=== PATIENT | female | born 1935 | race Caucasian/White ===

== ENCOUNTER 2021-04-03 12:11 | Outpatient (CLI) | payer MEDICARE, OTHER ==
[~2021-04-03 12:11] MED LIST: ASPI-605 PO; IRON1TAB96 PO; METF-440 PO; METO50TA16 PO; OLME40TA12 PO; SIMV-49 PO; [UNRECOGNIZED DRUG - CODE] PO
[2021-04-03 13:00] LABS: BASOPHILS % (AUTO) 0.7 % (0.0-2.0); EOSINOPHILS % (AUTO) 1.4 % (0.0-6.0); HEMATOCRIT 36 % (33-45); HEMOGLOBIN 11.7 g/dL (11.5-14.8); LYMPHOCYTES # (AUTO) 1.1 K/uL (0.8-4.8); LYMPHOCYTES % (AUTO) 14.8 % (20.0-44.0); MEAN CORPUSCULAR HGB CONC 33 g/dl (31.0-36.0); MEAN CORPUSCULAR VOLUME 91 fL (82-100); MONOCYTES # (AUTO) 0.6 K/uL (0.1-1.30); NEUTROPHILS # (AUTO) 5.4 K/uL (1.8-8.9); NEUTROPHILS % (AUTO) 75.1 % (43.0-81.0); PLATELET COUNT (AUTO) 290 K/uL (150-450); RED BLOOD CELL COUNT(AUTO) 3.88 MIL/uL (4.0-5.2); WHITE BLOOD COUNT (AUTO) 7.1 K/uL (4.3-11.0)
[2021-04-03 14:12] LABS: ALBUMIN 3.6 g/dL (3.4-5.0); BILIRUBIN,TOTAL 0.4 mg/dL (0.2-1.0); CALCIUM, SERUM 8.6 mg/dL (8.5-10.1); CREATININE 1.1 mg/dL (0.6-1.3); POTASSIUM 4.2 mmol/L (3.5-5.1); TOTAL PROTEIN, SERUM 7.5 g/dL (6.4-8.2)
[2021-04-03 14:23] LABS: THYROID STIMULATING HORMONE 3.334 uIU/mL (0.358-3.74)
== END 2021-04-03 23:59 | disposition home or self-care (01) ==
LOC: LAB 12:11
PROVIDERS: ATTEND Internal Medicine Interventional Cardiology
DX: I10 Essential (primary) hypertension (principal); E11.9 Type 2 diabetes mellitus without complications; E78.5 Hyperlipidemia, unspecified; E03.9 Hypothyroidism, unspecified; R53.83 Other fatigue
CPT/HCPCS: 36415; 80053-TC; 80061-TC; 83540-TC; 83550-TC; 84439-TC; 84443-TC; 85025-TC

== ENCOUNTER 2021-04-20 07:45 | Inpatient (IN) | payer MEDICARE, OTHER ==
[~2021-04-20] VITALS: Ht 147.3 cm; Wt 74.8 kg
--- NOTE | 2021-04-20 07:45 | NUR ---
PT BIBRA 83 FROM HOME C/O WORSENING SOB STARTED YESTERDAY. PT IS AAOX3, NOTED RESPIRATORY DISTRESS, HOOKED TO O2 VIA NON RB AT 15LPM, HOOKED TO MEDICAL EDITOR, KEPT RESTED AND COMFORTABLE. WILL CONTINUE TO MONITOR.
[2021-04-20] MEDS ORDERED: ONDANSETRON HCL/PF 4 MG/2 ML VIAL IVP ONE (08:00)
--- NOTE | 2021-04-20 08:00 | NUR ---
SEEN AND EXAMINED BY .
[2021-04-20] MEDS ORDERED: ONDANSETRON HCL/PF 4 MG/2 ML VIAL ONE (08:07)
--- NOTE | 2021-04-20 08:09 | NUR ---
COVID AND INFLUENZA SPECIMEN OBTIANED AND SENT TO LAB.
[2021-04-20 08:45] LABS: CALCIUM, SERUM 9.1 mg/dL (8.5-10.1); CARBON DIOXIDE 26 mmol/L (21-32); CHLORIDE 105 mmol/L (98-107); GLUCOSE 165 mg/dL (74-106); POTASSIUM 4.4 mmol/L (3.5-5.1); SODIUM SERUM 142 mmol/L (136-145); UREA NITROGEN, BLOOD 22 mg/dL (7-18)
[2021-04-20 08:59] LABS: ALANINE AMINOTRANSFERASE 21 U/L (12-78); ALBUMIN 3.7 g/dL (3.4-5.0); ALKALINE PHOSPHATASE 100 U/L (46-116); ASPARTATE AMINOTRANSFERASE 20 U/L (15-37); BILIRUBIN,TOTAL 0.4 mg/dL (0.2-1.0); TOTAL PROTEIN, SERUM 8.1 g/dL (6.4-8.2)
[2021-04-20 09:18] LABS: BASOPHILS # (AUTO) 0.1 K/uL (0.0-0.2); BASOPHILS % (AUTO) 0.8 % (0.0-2.0); EOSINOPHILS % (AUTO) 1.7 % (0.0-6.0); HEMATOCRIT 39 % (33-45); HEMOGLOBIN 12.6 g/dL (11.5-14.8); LYMPHOCYTES # (AUTO) 3.4 K/uL (0.8-4.8); LYMPHOCYTES % (AUTO) 27.5 % (20.0-44.0); MEAN CORPUSCULAR HGB CONC 32 g/dl (31.0-36.0); MEAN CORPUSCULAR VOLUME 93 fL (82-100); MONOCYTES % (AUTO) 7.8 % (2.0-12.0); NEUTROPHILS # (AUTO) 7.7 K/uL (1.8-8.9); NEUTROPHILS % (AUTO) 62.2 % (43.0-81.0); PLATELET COUNT (AUTO) 286 K/uL (150-450); RED BLOOD CELL COUNT(AUTO) 4.19 MIL/uL (4.0-5.2); WHITE BLOOD COUNT (AUTO) 12.4 K/uL (4.3-11.0)
[2021-04-20] MEDS ORDERED: FUROSEMIDE 40 MG/4 ML VIAL IV ONE (10:00)
[2021-04-20] MEDS ORDERED: FUROSEMIDE 40 MG/4 ML VIAL ONE ×3 (10:05→21:55)
--- NOTE | 2021-04-20 10:34 | NUR ---
CALLED NURSING SUP REGARDING PT BED
--- NOTE | 2021-04-20 10:51 | NUR ---
URINE COLLECTED AND SENT TO LAB
--- NOTE | 2021-04-20 10:54 | NUR ---
mp cai F16 instered per ZANDRA Alexis.
[2021-04-20 11:07] LABS: ABG BASE EXCESS -0.5 mmol/L; ABG PCO2 39.6 mmHg (35.0-45.0); ABG PH 7.403 (7.350-7.450); AaDO2 375.4 mmHg; COHb 0.3 % (0.5-1.5); MetHb 0.1 % (0.0-1.5); O2Hb 98.6 % (94.0-97.0); SITE, ABG Right Radial; VENT MODE, BG ST 15/5 16 100%
[2021-04-20] MEDS ORDERED: ENOXAPARIN SODIUM 30 MG/0.3 ML DISP.SYRIN ONE (11:14)
--- NOTE | 2021-04-20 11:19 | NUR ---
COVID ANTIGEN SWAB DONE AND SENT TO THE LAB
[2021-04-20] MEDS: ENOXAPARIN SODIUM 30 MG/0.3 ML DISP.SYRIN SQ SCH (11:20)
[2021-04-20] MEDS ORDERED: ACETAMINOPHEN 325 MG TABLET PO PRN (11:30)
[2021-04-20] MEDS ORDERED: ONDANSETRON HCL/PF 4 MG/2 ML VIAL IVP PRN (11:30)
[2021-04-20] MEDS ORDERED: MAG HYDROX/AL HYDROX/SIMETH 30 ML UDC PO PRN (11:30)
[2021-04-20] MEDS ORDERED: MAGNESIUM HYDROXIDE 30 ML UDC PO PRN (11:30)
[2021-04-20] MEDS ORDERED: Z GUARD REMEDY 4 OZ OINT TP PRN (11:30)
[2021-04-20] MEDS ORDERED: MORPHINE SULFATE INJ 2 MG/ML DISP.SYRIN IV PRN (11:30)
[2021-04-20 11:55] LABS: BILIRUBIN,URINE NEGATIVE (NEGATIVE); COLOR,URINE YELLOW (YELLOW); LEUKOCYTE ESTERASE ,URINE NEGATIVE (NEGATIVE); NITRITE, URINE NEGATIVE (NEGATIVE); PH,URINE 5.5 (5.0-8.0); PROTEIN,URINE NEGATIVE (NEGATIVE); UGLUCOSE NEGATIVE (NEGATIVE); UROBILINOGEN,URINE 0.2 EU/dL (0.2)
[2021-04-20 11:58] LABS: CREATINE KINASE, TOTAL 65 U/L (26-192)
[2021-04-20] MEDS ORDERED: DEXTROSE 50%-WATER 50 ML DISP.SYRIN IV PRN (12:00)
[2021-04-20 12:07] LABS: C-REACTIVE PROTEIN < 0.2 mg/dL (0.0-0.9)
[2021-04-20] MEDS ORDERED: ENOXAPARIN SODIUM 80 MG/0.8 ML DISP.SYRIN SQ SCH (12:30)
[2021-04-20] MEDS: BLOOD SUGAR DIAGNOSTIC 1 EACH STRIP IN SCH ×3 (12:31→22:59)
[2021-04-20 16:00] LABS: BILIRUBIN,DIRECT 0.1 mg/dL (0.0-0.2)
[2021-04-20 16:11] LABS: C-REACTIVE PROTEIN 0.3 mg/dL (0.0-0.9)
[2021-04-20] MEDS ORDERED: SIMVASTATIN 20 MG TABLET PO SCH (16:30)
[2021-04-20] MEDS: ASPIRIN EC 81 MG TABLET.DR PO SCH (17:50)
[2021-04-20] MEDS: METFORMIN 500 MG TABLET PO SCH (17:50)
[2021-04-20] MEDS ORDERED: LOSARTAN POTASSIUM 50 MG TABLET ONE (17:50)
[2021-04-20] MEDS: LOSARTAN POTASSIUM 50 MG TABLET PO SCH (17:50)
[2021-04-20] MEDS ORDERED: ASPIRIN EC 81 MG TABLET.DR PO ONE (17:50)
[2021-04-20] MEDS: FUROSEMIDE 40 MG/4 ML VIAL IV SCH ×2 (17:50→22:02)
[2021-04-20] MEDS ORDERED: METFORMIN 500 MG TABLET ONE (17:50)
--- NOTE | 2021-04-20 17:55 | NUR ---
RT NOTE PATIENT WAS REMOVED FROM BIPAP AND PLACED ON 3L NC POST ABG PER MD EDWARDS. BIPAP STANDBY. NO RESPIRATORY DISTRESS NOTED. WILL CONTINUE TO MONITOR PATIENT. Addendum: 04/20/21 at 1757 by DENIA JOHNSON RT Amended: Links added.
--- NOTE | 2021-04-20 22:08 | NUR ---
REPORT GIVEN TO LEONORA TUCKER ON FIRST FLOOR
--- NOTE | 2021-04-20 22:22 | NUR ---
PT TRANSFERRED TO UNIT ON [facility] WITH EMT AND RN AT BEDSIDE Kathy HURST. NAD NOTED.
--- NOTE | 2021-04-20 22:30 | NUR ---
RN NOTES ADMITTED A 85 Y/O FEMALE PATIENT KAYLEE SPEAKING FROM ER WITH CC SOB VIA [employer]stixxNEY. VITAL SIGNS TAKEN AND RECORDED AFEBRILE. WITH OXYGEN INHALATION @ 3LPM VIA NC TOLERATING WELL SATING 95%. TRANSFER TO BED SAFELY. WITH IV ACCESS AT L WRIST #22 PATENT FLUSHES WELL SL. WITH LUJAN CATHETER CONNECTED TO URINE BAG DRAINING YELLOWISH URINE OUTPUT. SKIN ASSESSMENT DONE. SKIN INTACT. ALL SAFETY MEASURES IN PLACE AT ALL TIMES. CALL LIGHT WITHIN REACH. HOB ELEVATED. BED ON LOWEST POSITION AND LOCKED. WILL CONTINUE TO MONITOR
[2021-04-20] MEDS: SIMVASTATIN 20 MG TABLET PO SCH (22:54)
[2021-04-20] MEDS: INSULIN REGULAR, HUMAN 100 UNIT/ML 3 ML VIAL SQ PRN (23:09)
[2021-04-21] VITALS: BP 148/81
[2021-04-21] MEDS: FUROSEMIDE 40 MG/4 ML VIAL IV SCH ×4 (00:51→16:44)
[2021-04-21 04:00] VITALS: BP 153/54
--- NOTE | 2021-04-21 06:10 | NUR ---
RN NOTES NOTED PATIENT WITH ELEVATED HR 150'S PRN CHECK PATIENT BP 150/60MMHG. WILL CONTINUE TO MONITOR. PRN MORPHINE 2 MG GIVEN PATIENT COMPLAIN OF PAIN @ CHIN.
--- NOTE | 2021-04-21 06:35 | NUR ---
RN NOTES HR STILL 150'S CALLED KIM LILLY WITH ORDER TO GIVE CARDIZEM 15MG SLOW IV PUSH. WILL CONTINUE TO MONITOR.
[2021-04-21 06:38] LABS: BASOPHILS % (AUTO) 0.8 % (0.0-2.0); EOSINOPHILS % (AUTO) 1.9 % (0.0-6.0); HEMATOCRIT 36 % (33-45); HEMOGLOBIN 12.2 g/dL (11.5-14.8); LYMPHOCYTES # (AUTO) 1.1 K/uL (0.8-4.8); LYMPHOCYTES % (AUTO) 17.2 % (20.0-44.0); MEAN CORPUSCULAR HGB CONC 34 g/dl (31.0-36.0); MEAN CORPUSCULAR VOLUME 91 fL (82-100); MONOCYTES # (AUTO) 0.7 K/uL (0.1-1.30); MONOCYTES % (AUTO) 11.3 % (2.0-12.0); NEUTROPHILS # (AUTO) 4.2 K/uL (1.8-8.9); NEUTROPHILS % (AUTO) 68.8 % (43.0-81.0); PLATELET COUNT (AUTO) 246 K/uL (150-450); RED BLOOD CELL COUNT(AUTO) 4.02 MIL/uL (4.0-5.2); WHITE BLOOD COUNT (AUTO) 6.1 K/uL (4.3-11.0)
[2021-04-21] MEDS ORDERED: DILTIAZEM HCL 25 MG IV IV ONE (07:00)
--- NOTE | 2021-04-21 07:00 | NUR ---
RN NOTES CARDIZEM 15MG SLOW IV PUSH GIVE. DR ROJAS INFORMED. WILL ENDORSED.
[2021-04-21 07:30] LABS: CALCIUM, SERUM 9.4 mg/dL (8.5-10.1); MAGNESIUM 1.8 mg/dL (1.8-2.4); PHOSPHORUS 5.1 mg/dL (2.5-4.9); POTASSIUM 3.7 mmol/L (3.5-5.1)
--- NOTE | 2021-04-21 07:33 | NUR ---
RN NOTES PATIENT STILL HR 130'S ALL MEDS GIVEN. ALL NEEDS ATTENDED. KEPT CLEAN AND DRY AT ALL TIMES. 02 SAT 97% STILL ON NC @ 3LPM. ENDORSED TO MORNING NURSE.
[2021-04-21] MEDS: PANTOPRAZOLE 40 MG TABLET.DR PO SCH (08:00)
--- NOTE | 2021-04-21 08:00 | NUR ---
ARANZA RN NOTE PATIENT IN BED , ALERT ORIENTED O TELE MONITOR AFIB HR 135 NO SOB NOTED AT THIS TIME, ON 3L NC SATURATION 94%, ABLE TO EAT BREAKFAST SELF , TROP 1.[address] ROJAS , BED IN LOWEST AND LOCKED POSITION, LT WRIST HL INTACT AND FLUSHED WELL , CALL LIGHT WITHIN REACH
[2021-04-21] MEDS: LOSARTAN POTASSIUM 50 MG TABLET PO SCH (08:05)
[2021-04-21] MEDS: METFORMIN 500 MG TABLET PO SCH (08:06)
[2021-04-21] MEDS: ASPIRIN EC 81 MG TABLET.DR PO SCH (08:06)
[2021-04-21] MEDS: ENOXAPARIN SODIUM 30 MG/0.3 ML DISP.SYRIN SQ SCH (08:15)
[2021-04-21] MEDS: INSULIN REGULAR, HUMAN 100 UNIT/ML 3 ML VIAL SQ PRN ×3 (08:17→22:25)
[2021-04-21] MEDS: BLOOD SUGAR DIAGNOSTIC 1 EACH STRIP IN SCH ×4 (08:20→22:24)
[2021-04-21] MEDS ORDERED: AMIODARONE 150 MG in IV D5W 100 ML IV ONE ×4 (08:30)
[2021-04-21] MEDS ORDERED: AMIODARONE 450 MG in IV D5W 250 ML IV PRN (08:30)
[2021-04-21] MEDS: AMIODARONE 450 MG in IV D5W 241 ML IV PRN ×2 (08:34→16:57)
[2021-04-21] MEDS ORDERED: ASPIRIN 325 MG TABLET PO SCH (09:00)
[2021-04-21] MEDS ORDERED: FUROSEMIDE 40 MG/4 ML VIAL IV SCH (09:00)
[2021-04-21] MEDS ORDERED: ENOXAPARIN SODIUM 80 MG/0.8 ML DISP.SYRIN SQ SCH (09:00)
[2021-04-21] MEDS ORDERED: ENOXAPARIN SODIUM 60 MG/0.6 ML DISP.SYRIN SQ ONE (10:00)
[2021-04-21] MEDS: POTASSIUM CHLORIDE 20 MEQ TAB.PRT.SR PO SCH ×3 (10:01→11:50)
--- NOTE | 2021-04-21 10:07 | NUR ---
ARANZA RN NOTE BP 87/[address] BOB SORIA TO HOLD LASIX THIS TIME ,WILL MONITOR
[2021-04-21 10:26] LABS: THYROID STIMULATING HORMONE 3.233 uIU/mL (0.358-3.74)
--- NOTE | 2021-04-21 10:32 | NUR ---
ARANZA RN NOTE ON AMIODARONE DRIP ORDERED. ALSO NOTIFIED TO DR ROJAS BP 87/65 OK TO HOLD LASIX FOR NOW WILL MONITOR
[2021-04-21 10:37] VITALS: BP 148/93
[2021-04-21 12:00] VITALS: BP 116/55
--- NOTE | 2021-04-21 13:35 | NUR ---
belinda rn note mid line lt upper arm inserted as ordered dr smith rn checker product design at bedside updated patient condition still afib hr 122
[2021-04-21 16:00] VITALS: BP 111/65
--- NOTE | 2021-04-21 16:10 | NUR ---
belinda rn note reported to dr diaz that on tele monitorconverted to sr hr 68 ,still cont amiodarone drip at this time ,will cont to monitor
[2021-04-21 20:00] VITALS: BP 113/49
[2021-04-21] MEDS: SIMVASTATIN 20 MG TABLET PO SCH (22:24)
[2021-04-22] VITALS: BP 123/60
[2021-04-22 04:00] VITALS: BP 132/59
[2021-04-22 07:27] LABS: ALANINE AMINOTRANSFERASE 16 U/L (12-78); ALBUMIN 3.2 g/dL (3.4-5.0); ALKALINE PHOSPHATASE 80 U/L (46-116); ASPARTATE AMINOTRANSFERASE 25 U/L (15-37); BILIRUBIN,TOTAL 0.7 mg/dL (0.2-1.0); CALCIUM, SERUM 8.6 mg/dL (8.5-10.1); CARBON DIOXIDE 29 mmol/L (21-32); CHLORIDE 98 mmol/L (98-107); CREATININE 1.6 mg/dL (0.6-1.3); GLUCOSE 118 mg/dL (74-106); MAGNESIUM 1.5 mg/dL (1.8-2.4); PHOSPHORUS 5.1 mg/dL (2.5-4.9); POTASSIUM 4.1 mmol/L (3.5-5.1); SODIUM SERUM 139 mmol/L (136-145); UREA NITROGEN, BLOOD 39 mg/dL (7-18)
--- NOTE | 2021-04-22 07:30 | NUR ---
RN NOTE PATIENT OBSERVED AWAKE IN BED, ALERT AND ORIENTED X4, ABLE TO VERBALIZE NEEDS, ON TELE MONITOR SR AT THIS TIME, WITH LEFT UPPER ARM MIDLINE AMIODARONE RUNNING @ 0.5MG INFUSING WELL, SAFETY MEASURES OBSERVED, BED WHEELS LOCK, CALL LIGHT WITHIN REACH, WILL CONTINUE TO MONITOR.
--- NOTE | 2021-04-22 07:32 | NUR ---
PT RESTING AWAKE AT THIS TIME, SLOVAK SPEAKING, CONTINUE ON AMIODARONE DRIP AT 0.5 MCG NSR WIT BBB AND INVERTED T WAVE NOTED, HR MOSTLY 60-70S AROUND 0430 THIS MORNING HR STARTED DROPPING TO 58 BUT NOT CONSISTENT, JUMPING TO MID 60S, KENIA STAPLE PROCESSING MACHINE OPERATOR INFORMED AND PER HIM TO CONTINUE TO AMIODARONE DRIP TILL THE END OF THE 24HRS UNLESS HR DROP TO 5O, ALL NEEDS ATTENDED, KEPT CLEAN AND DRY, CALL LIGHT WITHIN REACH,ENDORSED TO DILAN FOR CONTINUATION OF CARE.
[2021-04-22 07:49] LABS: BASOPHILS % (AUTO) 0.6 % (0.0-2.0); EOSINOPHILS % (AUTO) 2.4 % (0.0-6.0); HEMATOCRIT 35 % (33-45); HEMOGLOBIN 11.5 g/dL (11.5-14.8); LYMPHOCYTES # (AUTO) 1.3 K/uL (0.8-4.8); LYMPHOCYTES % (AUTO) 16.9 % (20.0-44.0); MEAN CORPUSCULAR HGB CONC 33 g/dl (31.0-36.0); MEAN CORPUSCULAR VOLUME 91 fL (82-100); MONOCYTES # (AUTO) 0.9 K/uL (0.1-1.30); MONOCYTES % (AUTO) 11.8 % (2.0-12.0); NEUTROPHILS # (AUTO) 5.1 K/uL (1.8-8.9); NEUTROPHILS % (AUTO) 68.3 % (43.0-81.0); PLATELET COUNT (AUTO) 235 K/uL (150-450); RED BLOOD CELL COUNT(AUTO) 3.82 MIL/uL (4.0-5.2); WHITE BLOOD COUNT (AUTO) 7.4 K/uL (4.3-11.0)
[2021-04-22 08:00] VITALS: BP 132/64
--- NOTE | 2021-04-22 08:22 | NUR ---
TROPONIN 2.[address] ROJAS AND DR HOLLAND AT THIS TIME
[2021-04-22] MEDS: INSULIN REGULAR, HUMAN 100 UNIT/ML 3 ML VIAL SQ PRN ×4 (09:12→22:07)
[2021-04-22] MEDS: BLOOD SUGAR DIAGNOSTIC 1 EACH STRIP IN SCH ×4 (09:12→22:03)
[2021-04-22] MEDS: LOSARTAN POTASSIUM 50 MG TABLET PO SCH (09:19)
[2021-04-22] MEDS: ENOXAPARIN SODIUM 80 MG/0.8 ML DISP.SYRIN SQ SCH (09:19)
[2021-04-22] MEDS: ASPIRIN EC 81 MG TABLET.DR PO SCH (09:19)
[2021-04-22] MEDS: PANTOPRAZOLE 40 MG TABLET.DR PO SCH (09:20)
[2021-04-22 12:00] VITALS: BP 123/64
[2021-04-22] MEDS ORDERED: MAGNESIUM OXIDE 400 MG TABLET PO ONE (12:00)
[2021-04-22 16:00] VITALS: BP 114/54
--- NOTE | 2021-04-22 18:44 | NUR ---
RN NOTE PATIENT OBSERVED AWAKE IN BED, ALERT AND ORIENTED X4, ABLE TO VERBALIZE NEEDS, ON TELE MONITOR SR AT THIS TIME, WITH LEFT UPPER ARM MIDLINE FLUSHING WELL, ACCU CHECK DONE ORDERED, SAFETY MEASURES OBSERVED, BED WHEELS LOCK, CALL LIGHT WITHIN REACH, WILL ENDORSE TO NOC SHIFT.
[2021-04-22 20:00] VITALS: BP 129/58
[2021-04-22] MEDS: SIMVASTATIN 20 MG TABLET PO SCH (21:55)
[2021-04-23] VITALS: BP 158/73
[2021-04-23 04:00] VITALS: BP 140/74
--- NOTE | 2021-04-23 07:10 | NUR ---
PT RESTING AWAKE AT THIS TIME, TAJIK SPEAKING, ON 3LPM VIA NC, NO SOB/ACUTE DISTRESS NOTED, HR MOSTLY 60-80S THROUGHOUT THE NIGHT, OTHERWISE NO SIGNIFICANT CHANGE IN CONDITION, PCR RESULT STILL PENDING, ALL NEEDS ATTENDED, KEPT CLEAN AND DRY, CALL LIGHT WITHIN REACH, ENDORSED TO GERA RN FOR CONTINUATION OF CARE.
[2021-04-23] MEDS: BLOOD SUGAR DIAGNOSTIC 1 EACH STRIP IN SCH ×4 (07:30→22:00)
[2021-04-23 08:23] LABS: CALCIUM, SERUM 8.7 mg/dL (8.5-10.1); CREATININE 1.2 mg/dL (0.6-1.3); POTASSIUM 4.3 mmol/L (3.5-5.1)
[2021-04-23] MEDS: ENOXAPARIN SODIUM 80 MG/0.8 ML DISP.SYRIN SQ SCH (08:33)
[2021-04-23] MEDS: PANTOPRAZOLE 40 MG TABLET.DR PO SCH (08:33)
[2021-04-23] MEDS: ASPIRIN EC 81 MG TABLET.DR PO SCH (08:33)
[2021-04-23] MEDS: LOSARTAN POTASSIUM 50 MG TABLET PO SCH (08:34)
[2021-04-23 09:32] VITALS: BP 136/55
--- NOTE | 2021-04-23 09:38 | NUR ---
awake alert no acute distress.
[2021-04-23 12:35] VITALS: BP 123/55
[2021-04-23 16:35] VITALS: BP 140/55
--- NOTE | 2021-04-23 17:51 | NUR ---
patient blood sugar 64,snacks offered.
[2021-04-23 20:00] VITALS: BP 141/60
[2021-04-23] MEDS: INSULIN REGULAR, HUMAN 100 UNIT/ML 3 ML VIAL SQ PRN (22:00)
[2021-04-23] MEDS: SIMVASTATIN 20 MG TABLET PO SCH (22:00)
--- NOTE | 2021-04-23 22:01 | NUR ---
Accucheck 2200 not cover per sliding scale, patient will be NPO after midnight for cardiac cath in am.
[2021-04-24] VITALS (16 sets, daily range): BP systolic 116–153; BP diastolic 37–105
--- NOTE | 2021-04-24 03:00 | NUR ---
REPORT GIVEN TO ERICK LEA FROM ICU, PATIENT WILL GO FROM CARDIAC CATH TO ICU FOR CLOSE OBSERVATION, PATIENT STILL AT CARDIAC CATH, PATIENT BELONGINGS GIVEN TO ERICK.
[2021-04-24] MEDS: PANTOPRAZOLE 40 MG TABLET.DR PO SCH ×2 (07:11→07:14)
[2021-04-24] MEDS: BLOOD SUGAR DIAGNOSTIC 1 EACH STRIP IN SCH ×4 (08:01→22:27)
[2021-04-24] MEDS: INSULIN REGULAR, HUMAN 100 UNIT/ML 3 ML VIAL SQ PRN ×3 (08:01→22:28)
[2021-04-24 08:24] LABS: BASOPHILS # (AUTO) 0.1 K/uL (0.0-0.2); EOSINOPHILS % (AUTO) 5.4 % (0.0-6.0); HEMATOCRIT 34 % (33-45); HEMOGLOBIN 11.3 g/dL (11.5-14.8); LYMPHOCYTES # (AUTO) 1.2 K/uL (0.8-4.8); LYMPHOCYTES % (AUTO) 18.1 % (20.0-44.0); MEAN CORPUSCULAR HGB CONC 34 g/dl (31.0-36.0); MEAN CORPUSCULAR VOLUME 92 fL (82-100); MONOCYTES # (AUTO) 0.7 K/uL (0.1-1.30); MONOCYTES % (AUTO) 11.1 % (2.0-12.0); NEUTROPHILS # (AUTO) 4.3 K/uL (1.8-8.9); NEUTROPHILS % (AUTO) 64.4 % (43.0-81.0); PLATELET COUNT (AUTO) 235 K/uL (150-450); RED BLOOD CELL COUNT(AUTO) 3.66 MIL/uL (4.0-5.2); WHITE BLOOD COUNT (AUTO) 6.7 K/uL (4.3-11.0)
[2021-04-24 08:28] LABS: CALCIUM, SERUM 8.6 mg/dL (8.5-10.1); CREATININE 1.1 mg/dL (0.6-1.3); POTASSIUM 4.5 mmol/L (3.5-5.1)
[2021-04-24] MEDS: ENOXAPARIN SODIUM 80 MG/0.8 ML DISP.SYRIN SQ SCH (09:00)
[2021-04-24] MEDS: ASPIRIN EC 81 MG TABLET.DR PO SCH (09:00)
[2021-04-24] MEDS: LOSARTAN POTASSIUM 50 MG TABLET PO SCH (09:02)
--- NOTE | 2021-04-24 09:46 | NUR ---
PER [facility] PAC COVID NEGATIVE.
--- NOTE | 2021-04-24 12:40 | NUR ---
Patient picked up at this time per OR nurse, patient is going for cardiac cancerization, NPO since midnight, in stable condition with vs 98.6, 73, 20, 99%, 137/65.
[2021-04-24] MEDS ORDERED: IV NS 0.9% 1,000 ML ONE (12:59)
[2021-04-24] MEDS ORDERED: IODIXANOL 150 ML IV ONE (13:00)
[2021-04-24] MEDS ORDERED: NITROGLYCERIN IN 5 % DEXTROSE 250 ML IV ONE (13:00)
[2021-04-24] MEDS ORDERED: LIDOCAINE HCL/PF 1% 30 ML SDV ONE (13:00)
[2021-04-24] MEDS ORDERED: MIDAZOLAM HCL 2 MG/2ML VIAL ONE (13:00)
[2021-04-24] MEDS ORDERED: FENTANYL PF 100MCG/2ML AMPUL ONE (13:00)
[2021-04-24] MEDS ORDERED: IV NS 0.9% 500 ML IV ONE (13:32)
[2021-04-24] MEDS ORDERED: ADENOSINE 6 MG/2 ML VIAL ONE (13:33)
[2021-04-24] MEDS ORDERED: HEPARIN SODIUM, PORCINE 5000 UNITS/1 ML VIAL ONE (13:33)
[2021-04-24] MEDS ORDERED: HEPARIN SODIUM, PORCINE 1,000 UNIT/ML VIAL ONE ×3 (13:33→14:36)
[2021-04-24] MEDS ORDERED: IODIXANOL 320MG/ML 50 ML IV ONE (13:35)
[2021-04-24] MEDS ORDERED: TICAGRELOR 90 MG TABLET PO ONE (13:59)
[2021-04-24] MEDS ORDERED: IODIXANOL 320MG/ML 100 ML IV ONE (14:22)
--- NOTE | 2021-04-24 15:15 | NUR ---
RN/ICU-RECEIVED PT. FROM SYSTEMS MANAGEMENT CONSULTANT BY BED, ACCOMPANIED BY STAFF PER ACLS PROTOCOL. AWAKE, ALERT, ORIENTED, ANDORRAN SPEAKING W/ LIMITED YAKUT./P HEART CATH W/ STENT-LAD,PTCA RCA. W/ TR BAND ON RIGHT WRIST, NO BLEEDING, SWELLING OR HEMATOMA NOTED ON SITE, W/ PALPABLE PULSES.RIGHT HAND COLD TO TOUCH, ELEVATED ON PILLOW, COVERED W/ WARM BLANKET. PT. INSTRUCTED TO KEEP RIGHT UPPER EXTREMITY ELEVATED AT ALL TIMES AND ELEVATED ON PILLOW.PT. VERBALIZED UNDERSTANDING, WILL MONITOR PER PROTOCOL.PT. IS A FULL CODE.TR BAND W/ 14 ML AIR, DEFLATION STARTED AT 3ML Q 15 MINS PER PROTOCOL. NEURO VASCULAR CHECK INITIATED PER PROTOCOL.
[2021-04-24] MEDS ORDERED: IV NS 0.9% 1,000 ML IV ONE (16:00)
--- NOTE | 2021-04-24 16:00 | NUR ---
RN/ICU-DAUGHTER KITTY HERE TO VISIT PT. ALL QUESTIONS AND CONCERNS ANSWERED APPROPRIATELY, VERBALIZED UNDERSTANDING.
--- NOTE | 2021-04-24 16:30 | NUR ---
RN/ICU- TR BAND D/C, NOTED SOME BRUISING ON THE SITE BUT NO SWELLING OR BLEEDING, RIGHT HAND IS WARM/COOL TO TOUCH, NO BLEEDING. W/ PALPABLE PULSES.
--- NOTE | 2021-04-24 20:30 | NUR ---
RN/ICU- PT. VERBALIZING, HUNGER, DR. CRUZ WAS NOTIFIED W/ PHONE ORDER TO START PT. ON CARDIAC DIET.PT. HAD CRACKERS 2 PACKETS W/ WATER, TOLERATED WELL. HOB AT 60/DEGREES. ASPIRATION PRECAUTIONS IN EFFECT.
[2021-04-24] MEDS: SIMVASTATIN 20 MG TABLET PO SCH (21:37)
[2021-04-25] VITALS (10 sets, daily range): BP systolic 99–144; BP diastolic 49–84
--- NOTE | 2021-04-25 06:15 | NUR ---
RN/ICU- PT. SLEEPING, AROUSABLE, EKG SR HR-75/MIN. BP-144/63, TR BAND SITE, NO BLEEDING OR HEMATOMA, W/ SOME BRUISING STILL, RIGHT HAND COOL TO WARM TO TOUCH W/ PALPABLE RADIAL PULSES.
--- NOTE | 2021-04-25 08:00 | NUR ---
RN NOTES RECEIVED PATIENT IN THE BED A/O X4 COMORAN SPEAKER, VSS, PATIENT ROOM AIR, NO ACUTE RESPIRATORY DISTRESS, REFUSED PAIN. LUJAN DRAINING VIA GRAVITY. PATIENT HAS LEFT MIDLINE INTACT FLASHES WELL. CALL LIGHT WITHIN TO REACH. SEEN CORDIAOGIST DR DIETZ, AND HOSPITALIST. WILL FOLLOW UP.
[2021-04-25] MEDS ORDERED: TICAGRELOR 90 MG TABLET PO SCH (09:00)
[2021-04-25] MEDS ORDERED: ASPIRIN 81 MG TAB.CHEW PO SCH (09:00)
[2021-04-25] MEDS ORDERED: APIX2.5T PO (09:30)
[2021-04-25] MEDS ORDERED: SIMV-46 PO (09:30)
[2021-04-25] MEDS ORDERED: TICA90TA PO (09:30)
--- NOTE | 2021-04-25 09:30 | NUR ---
RN NOTES GET DISCHARGE ORDER FROM HOSPITALIST, PATIENT GOING HOME, PATIENT DAUGHTER WILL LOOP TACKER PATIENT @1200 AFTERNOON. DUE MEDICATION ADMINISTERED, BS-202MG/DL COVERAGE GIVEN. PATIENT TOLERATED BREAKFAST WEEL.
[2021-04-25] MEDS: BLOOD SUGAR DIAGNOSTIC 1 EACH STRIP IN SCH (09:40)
[2021-04-25] MEDS: PANTOPRAZOLE 40 MG TABLET.DR PO SCH (09:41)
[2021-04-25] MEDS: ASPIRIN EC 81 MG TABLET.DR PO SCH (09:41)
[2021-04-25] MEDS: LOSARTAN POTASSIUM 50 MG TABLET PO SCH (09:43)
[2021-04-25] MEDS: INSULIN REGULAR, HUMAN 100 UNIT/ML 3 ML VIAL SQ PRN (09:46)
--- NOTE | 2021-04-25 12:10 | NUR ---
RN NOTES PATIENT DISCHARGE AT THIS TIME GOING HOME. PATIENT A/O X4, STABLE, VSS, REFUSED PAIN. DISCHARGE ORDER AND MED RECONCILIATION EXPLAINED TO THE PATIENT. PATIENT SIGN PAPERWORK, VERBALIZED UNDERSTANDING. BELONGING WITH THE PATIENT. MEDICATION ELECTRONICALY SENDED TO THE [facility] VIA HOSPITALIST. PATIENT WILL FOLLOW DR DIETZ WITHIN ONE WEEK, ESCOETED PATIENT TO THE LOBBY FOR SAFETY. PATIENT QUALITY ASSURANCE TESTER VIA DAUGHTER NAME KITTY.
== END 2021-04-25 12:17 | disposition home or self-care (01) | DRG 246 ==
LOC: ER 07:47 → TRANSITION 12:03 → TELE1 20:40 → TELE-TD 22:12 → ICU 04-24 15:19
PROVIDERS: ADMIT Nurse Practitioner Acute Care; ATTEND Internal Medicine
PROC: 5A09357 Assistance with Respiratory Ventilation, Less than 24 Consecutive Hours, Continuous Positive Airway Pressure (ICD-10-PCS; principal; 2021-04-20)
PROC: 05HC33Z Insertion of Infusion Device into Left Basilic Vein, Percutaneous Approach (ICD-10-PCS; 2021-04-21)
PROC: B240ZZ3 Ultrasonography of Single Coronary Artery, Intravascular (ICD-10-PCS; 2021-04-24)
PROC: 4A023N7 Measurement of Cardiac Sampling and Pressure, Left Heart, Percutaneous Approach (ICD-10-PCS; 2021-04-24)
PROC: B2111ZZ Fluoroscopy of Multiple Coronary Arteries using Low Osmolar Contrast (ICD-10-PCS; 2021-04-24)
PROC: 02703ZZ Dilation of Coronary Artery, One Artery, Percutaneous Approach (ICD-10-PCS; 2021-04-24)
PROC: 02C03ZZ Extirpation of Matter from Coronary Artery, One Artery, Percutaneous Approach (ICD-10-PCS; 2021-04-24)
PROC: 027034Z Dilation of Coronary Artery, One Artery with Drug-eluting Intraluminal Device, Percutaneous Approach (ICD-10-PCS; 2021-04-24)
DX: I21.4 Non-ST elevation (NSTEMI) myocardial infarction (principal); J96.01 Acute respiratory failure with hypoxia; N17.0 Acute kidney failure with tubular necrosis; I50.33 Acute on chronic diastolic (congestive) heart failure; T82.867A Thrombosis due to cardiac prosthetic devices, implants and grafts, initial encounter; I13.0 Hypertensive heart and chronic kidney disease with heart failure and stage 1 through stage 4 chronic kidney disease, or unspecified chronic kidney disease; J98.11 Atelectasis; Z20.822 Contact with and (suspected) exposure to COVID-19; E11.22 Type 2 diabetes mellitus with diabetic chronic kidney disease; N18.9 Chronic kidney disease, unspecified; E66.9 Obesity, unspecified; Z68.35 Body mass index [BMI] 35.0-35.9, adult; I48.91 Unspecified atrial fibrillation; I25.5 Ischemic cardiomyopathy; I25.10 Atherosclerotic heart disease of native coronary artery without angina pectoris; Y83.1 Surgical operation with implant of artificial internal device as the cause of abnormal reaction of the patient, or of later complication, without mention of misadventure at the time of the procedure; Y92.009 Unspecified place in unspecified non-institutional (private) residence as the place of occurrence of the external cause; E78.5 Hyperlipidemia, unspecified; I25.2 Old myocardial infarction; Z79.82 Long term (current) use of aspirin; Z96.649 Presence of unspecified artificial hip joint; Z96.659 Presence of unspecified artificial knee joint; E83.42 Hypomagnesemia; Z79.84 Long term (current) use of oral hypoglycemic drugs; Z79.899 Other long term (current) drug therapy; G47.30 Sleep apnea, unspecified; Z82.49 Family history of ischemic heart disease and other diseases of the circulatory system; Z83.3 Family history of diabetes mellitus
CPT/HCPCS: 36415; 36600; 71045-TC; 80048-TC; 80053-TC; 82248-TC; 82550-TC; 82803-TC; 82962-TC; 83605-TC; 83615-TC; 83735-TC; 83880; 84100-TC; 84443-TC; 84484-TC; 85025-TC; 85378-TC; 85730-TC; 86140-TC; 87040-TC; 87081-TC; 87086-TC; 93307-TC; 93970-TC; C1725; C1753; C1757; C1769; C1887; C9601; G0378; G0500; J0153; J0282; J1644; J1650; J1815; J1940; J2250; J2270; J2405; J3010; J3490; J7030; J7040; J7060; Q9967; U0003